=== PATIENT | female | born 1935 | race Caucasian/White ===

== ENCOUNTER 2019-01-28 19:02 | Inpatient (IN) ==
[2019-01-28] MEDS ORDERED: ASPIRIN ONE (19:41)
[2019-01-28] MEDS ORDERED: ASPIRIN PO ONE (19:42)
[2019-01-28 19:50] LABS: BASO# 0.05 X1000 (0.0-0.2); BASO% 0.5 % (0.0-0.8); EOS# 0.21 X1000 (0.0-0.7); HEMOGLOBIN 10.6 g/dL (12.0-16.0); IMM GRAN# 0.02 X1000 (0.0-0.04); IMM GRAN% 0.2 % (0.0-0.5); LYMPH# 2.45 X1000 (1.2-3.4); LYMPH% 23.7 % (20.5-51.1); MCH 28.6 PG (27-31); MCHC 32.1 g/dL (33-37); MCV 89.2 FL (81-99); MONO# 0.82 X1000 (0.11-0.59); MONO% 7.9 % (1.7-9.3); MPV 11.1 FL (7.4-10.4); NEUT# 6.79 X1000 (1.4-6.5); NEUT% 65.7 % (42.2-75.2); PLT 261 X1000 (130-400); RDW 12.8 % (11.5-14.5); WBC 10.34 X1000 (4.8-10.8)
--- NOTE | 2019-01-28 19:57 | Diag Imaging Result Doc PS360 ---
EXAM: CHEST-1 VIEW HISTORY: CP TECHNIQUE: Chest single view COMPARISON: None. FINDINGS: The lungs are well expanded. The heart is not enlarged. The vessels are not distended. There are no infiltrates. No effusion identified. IMPRESSION: Negative exam. Electronically signed by Jesu Sue 01/28/2019 7:54 PM
[2019-01-28 20:16] LABS: AGAP 12; ALB/GLOB RATIO 1.6; ALBUMIN 3.6 g/dL (3.5-5.0); ALKALINE PHOSPHATASE 60 U/L (32-104); BUN 17 mg/dL (8-22); CALCIUM 7.7 mg/dL (8.8-10.2); CHLORIDE 105 mmol/L (98-107); CK PROFILE 44 U/L (24-173); COSMO 292; CREATININE 0.7 mg/dL (0.5-0.9); ESTIMATED GFR > 60; GLUCOSE 290 mg/dL (70-104); GOT 11 U/L (10-30); GPT 8 U/L (10-36); MAGNESIUM 1.3 mg/dL (1.5-2.7); POTASSIUM 3.5 mmol/L (3.5-5.1); SODIUM 140 mmol/L (136-145); TCO2 23 mmol/L (25-35); TOTAL BILIRUBIN < 0.15 mg/dL (0.20-1.00); TOTAL PROTEIN 5.8 g/dL (6.3-8.3)
--- NOTE | 2019-01-28 20:20 | PROVIDER DOCUMENTATION ---
This chart was entered by Dilcia Matthew Scribe, acting as scribe for Sarai Chris MD. HPI-Chest Pain - General Chief Complaint: Chest Pain Stated Complaint: CHEST PAIN Time Seen by Provider: 01/28/19 19:21 Source: patient Allergies/Adverse Reactions: Patient Allergies Allergy/AdvReac Type Severity Reaction Status Date / Time No Known Allergies Allergy Verified 01/28/19 20:33 Home Medications: Home Medication List Medication Instructions Recorded Confirmed Last Taken Type Celecoxib [Celebrex] 1 cap PO DAILY 01/28/19 01/28/19 Unknown History LISINOpril [Prinivil] 1 tab PO DAILY 01/28/19 01/28/19 Unknown History Magnesium Oxide [Magox 400] 1 tab PO DAILY 01/28/19 01/28/19 Unknown History Metformin [Glucophage] 1 tab PO DAILY 01/28/19 01/28/19 Unknown History Mirabegron [Myrbetriq] 1 tab PO DAILY 01/28/19 01/28/19 Unknown History Paroxetine [Paxil] 1 tab PO TID 01/28/19 01/28/19 Unknown History Pioglitazone [Actos] 1 tab PO DAILY 01/28/19 01/28/19 Unknown History - History of Present Illness-CP Nature of Presenting Problem: Pt is 83/F presenting to ED w/ substernal CP that started this morning. She sts that she woke up with it. pt describes the pain as heavy pressure. Denies taking any aspirin or nitro. Pt has no cardiac hx. Pt sts that she has had a dry cough recently as well as some sinus drain. Pt has hx of HTN. Location: reports: substernal Chest Pain Radiation: reports: no radiation Quality of Pain: reports: pressure Severity in ED: moderate Onset/Duration: this morning Timing: still present Context/Activities at Onset: reports: none Modifying Factors: improves with: nothing Associated Symptoms: denies: diaphoresis, heartburn, nausea, shortness of breath Nitro Today/Relief: no nitro taken today Aspirin Treatment Today: no aspirin today Prior Chest Pain/Cardiac Workup: reports: no prior chest pain Similar Symptoms Previously?: No Recently Seen Here or By Another Healthcare Provider: No Review of Systems - Adult - REVIEW OF SYSTEMS - ADULT Constitutional: reports: no symptoms reported. denies: chills, fever Eyes: reports: no symptoms reported Ears, Nose, Mouth & Throat: reports: no symptoms reported Cardiovascular: reports: chest pain Respiratory: reports: cough. denies: shortness of breath Gastrointestinal: denies: nausea, vomiting Genitourinary: reports: no symptoms reported Musculoskeletal: reports: no symptoms reported Integumentary: reports: no symptoms reported Neurological: reports: no symptoms reported. denies: dizziness/vertigo, headache/migraines Psychiatric: reports: no symptoms reported Endocrine: reports: no symptoms reported Hematologic/Lymphatic: reports: no symptoms reported Allergic/Immunologic: reports: no symptoms reported All Other Systems: Reviewed and Negative Past History - Adult - PAST MEDICAL HISTORY-ADULT Review of Records: reports: Old Records Reviewed, Nursing Assessment Review, Medications Reviewed, Social history reviewed & non-contributory. Cardiovascular: reports: HTN - SOCIAL HISTORY Smoking: denies, non-smoker Substance Use: none/never Alcohol Use Frequency: never Living Situation: family Physical Exam-General - PHYSICAL EXAM-ADULT Initial Vital Signs Reviewed: Yes - CONSTITUTIONAL General Appearance: appears well, alert, no apparent distress - EYES Eyes: PERRL/EOMI, pink conjunctivae - HEAD, EARS, NOSE, MOUTH & THROAT HENMT: normocephalic/atraumatic, moist mucous membranes, normal ENT inspection, TMs normal - NECK Neck: non-tender, full range of motion, supple, normal inspection - RESPIRATORY Respiratory: lungs clear - CARDIOVASCULAR Cardiovascular: regular rate, rhythm, other (reproducable chest pain) - GASTROINTESTINAL (ABDOMEN) Abdominal Exam: non tender, soft - LYMPHATIC Lymphatic: no adenopathy - MUSCULOSKELETAL Back Exam: normal inspection Extremity: normal range of motion, non-tender, normal gait, normal inspection - SKIN Integumentary: normal color, warm/dry - NEUROLOGIC Neurologic: grossly normal - PSYCHIATRIC Psych/Mental Status: normal mood/affect, normal thought content, normal thought process, oriented x 3 - HEART Score HEART Score: History: Moderately Suspicious HEART Score: ECG: Non-Specific Repolarization Disturbance/LBBB/PM HEART Score: Age: > or = 65 Years HEART Score: Risk Factors for Atherosclerotic Disease: 1 or 2 Risk Factors HEART Score: Troponin: < or = Normal Limit Total HEART Score:: 5 Progress - PLAN OF CARE/RESULTS Progress/Plan/Lab Results: Orders Category Date Time Status Admit - [facility] Routine AdmDCTranf 01/28/19 22:06 Active Admit To Inpatient From Observation Routine AdmDCTranf 01/30/19 09:38 Active Apply Mechanical Device [QM] ORDERED Care 01/28/19 22:06 Active Notify MD if DIRECTED Care 01/28/19 22:06 Active Nursing- MD Consult Request ROUTINE Care 01/28/19 22:06 Completed Saline Loc DIRECTED Care 01/28/19 22:06 Active Vital Signs Order Q 4-HR ASSESS Care 01/28/19 22:06 Active Z-Document. for Tele Applied ORDERED Care 01/28/19 22:06 Completed MD [Physician/Provider Consults] Routine Cons 01/28/19 22:06 Ordered Heart Healthy Diet Diet 01/29/19 10:24 Completed NPO Diet 01/30/19 00:01 Completed CHEST-1 VIEW [RAD] Stat Exams 01/28/19 19:23 Completed MYOCARDIAL PERF SCAN, STR/REST [NM] Routine Exams 01/30/19 07:19 Draft A1C HGB W EST AVG GLUCOSE [CHEM] Stat Lab 01/29/19 05:26 Completed BASIC METABOLIC PANEL [CHEM] Urgent Lab 01/29/19 09:58 Completed CBC WITH ELECTRONIC DIFF [HEME] Routine Lab 01/29/19 05:26 Completed CBC WITH ELECTRONIC DIFF [HEME] Stat Lab 01/28/19 19:32 Completed CK PROFILE [SP CHEM] Q8H Lab 01/28/19 22:35 Completed CK PROFILE [SP CHEM] Q8H Lab 01/29/19 05:26 Completed CK PROFILE [SP CHEM] Q8H Lab 01/29/19 14:05 Completed CK PROFILE [SP CHEM] Stat Lab 01/28/19 19:32 Completed COMPREHENSIVE METABOLIC PANEL [CHEM] Stat Lab 01/28/19 19:32 Completed LIPID PROFILE W/CALC LDL [LIPIDS] Routine Lab 01/29/19 05:26 Completed MAGNESIUM [CHEM] Stat Lab 01/28/19 19:32 Completed MAGNESIUM [CHEM] Urgent Lab 01/29/19 09:58 Completed TROPONIN T Q8H Lab 01/28/19 22:35 Completed TROPONIN T Q8H Lab 01/29/19 05:26 Completed TROPONIN T Q8H Lab 01/29/19 14:05 Completed TROPONIN T Stat Lab 01/28/19 19:32 Completed Acetaminophen [Tylenol] Med 01/28/19 22:06 Discontinued 650 mg PO Q6H PRN PRN Aspirin Med 01/28/19 19:41 Discontinued 325 mg .ROUTE .STK-MED ONE Aspirin Med 01/29/19 09:00 Discontinued 325 mg PO DAILY Aspirin Med 01/28/19 19:42 Discontinued 325 mg PO NOW ONE Aspirin Med 01/30/19 09:00 Discontinued 81 mg PO DAILY LISINOpril [Prinivil] Med 01/29/19 10:30 Discontinued 5 mg PO DAILY Magnesium Oxide [Mag-Ox] Med 01/30/19 09:00 Discontinued 400 mg PO DAILY Magnesium Oxide [Mag-Ox] Med 01/30/19 09:00 Discontinued 400 mg PO DAILY Magnesium Sulfate 1 gm/D5w Med 01/28/19 20:21 Discontinued 1 gm in 100 ml IV NOW Magnesium Sulfate 2 gm/S.w.i. Med 01/29/19 11:28 Discontinued 2 gm in 50 ml IV NOW Nitroglycerin Sl [Nitroglycerin] Med 01/28/19 22:06 Discontinued 0.4 mg SL Q5M PRN PRN Omeprazole [Prilosec] Med 01/29/19 07:00 Discontinued 20 mg PO DAILY@0700 Ondansetron [Zofran] Med 01/28/19 22:06 Discontinued 4 mg IV Q4H PRN PRN Paroxetine [Paxil] Med 01/29/19 13:00 Discontinued 20 mg PO TID Regadenoson [Lexiscan] Med 01/30/19 09:34 Discontinued 0.4 mg .ROUTE .STK-MED ONE Oxygen Device Routine Oth 01/28/19 22:06 Completed Telemetry [OM.EQ] Routine Oth 01/28/19 22:06 Active EKG [EKG] Routine Ther 01/30/19 06:00 Draft EKG [EKG] Stat Ther 01/28/19 19:10 Draft EKG [EKG] Stat Ther 01/29/19 09:30 Completed Echo Spec/Color Doppler Routine Ther 01/29/19 09:29 Draft Transfer/Admit Order [TRANSFER] Routine Transfer 01/28/19 20:55 Completed Result Diagrams: 01/29/19 05:26 01/29/19 09:58 - EKG 1 Time of EKG reading by physician:: 19:14 EKG Read and Signed by:: Sarai Chris EKG Interpretation (*Must complete 3 of following elements*): Abnormal (normal sinus rhythm, inferior infarct, age undetermined. Abnormal ECG) - XRAY 1 XRAY: Bilateral XRAY Study: Chest Impression: Normal (EXAM: CHEST-1 VIEW HISTORY: CP TECHNIQUE: Chest single view COMPARISON: None. FINDINGS: The lungs are well expanded. The heart is not enlarged. The vessels are not distended. There are no infiltrates. No eff usion identified. IMPRESSION: Negative exam. Electronically signed by Jesu Sue 01/28/2019 7:54 PM 01/28/191953 Interpreting Physician: Jeus Sue MD Dictated Date/Time: 01/28/191953 cc: Sarai Chris MD; Raji Araujo MD) - CONSULTS/PCP/HOSPITALIST Notification #1 *Consult/PCP/Hospitalist*: DR PARADA Time Discussed: 20:36 Consult Disposition: Admit Departure - Departure Date of Disposition Decision: 01/28/19 Time of Disposition Decision: 22:10 DIAGNOSIS: Chest pain Disposition: ADMITTED INPATIENT 09 Certified Medical Emergency: Emergent Condition: Good - Critical Care Note This patient required my direct & personal management of CC.: No Attestation - Physician/ MANUEL Attestation Patient care was provided by Advanced Practice Provider:: No The physician spent face to face time with patient:: Yes Advanced Practice Provider documentation review:: Supervising physician onsite and consulted in the evaluation and care of this patient. The physician did have a face to face encounter with the patient. This chart was documented by the indicated scribe, (Dilcia Matthew Scribe) and accurately reflects the services I performed and decisions made by me, Sarai Chris MD, as attested by the provider's signature.
[2019-01-28] MEDS ORDERED: MAGNESIUM SULFATE 1 GM/D5W 1 GM/100 ML IVPB IV ONE (20:21)
[2019-01-28] MEDS ORDERED: NITROGLYCERIN SL PRN (22:06)
[2019-01-28] MEDS ORDERED: ZOFRAN IV PRN (22:06)
--- NOTE | 2019-01-28 22:15 | HISTORY AND PHYSICAL ---
PRIMARY CARE PHYSICIAN: Dr. Raji Araujo. CHIEF COMPLAINT: Chest pain. HISTORY OF PRESENTING ILLNESS: An 83-year-old female with a history of diabetes mellitus type 2, hypertension, who presented to the emergency department with 1-day history of having chest pain. She described the chest pain as pressure-like and it was intermittent and was not subsiding and subsequently she had come to emergency department. ED she was evaluated and due to presenting symptoms, it was thought that we will place her for observation for further evaluation, management. At time my examination she denied any headache, fever, chills, nausea, vomiting, diarrhea, hemoptysis, melena, weight changes, but complained of chest pain. PAST MEDICAL HISTORY: Include diabetes mellitus type 2, hypertension. PAST SURGICAL HISTORY: Left knee surgery, hysterectomy. ALLERGIES: No known drug allergies. CURRENT MEDICATIONS: She does not recall and nursing staff will reconcile. SOCIAL HISTORY: No history of smoking, alcohol or illicit drug use. FAMILY HISTORY: Positive coronary disease in father. REVIEW OF SYSTEMS: Fourteen point review of system as listed in HPI. Other systems negative. PHYSICAL EXAMINATION: GENERAL: Cooperative, friendly female. She is resting comfortably now. VITAL SIGNS: Temperature 97.5 degrees, pulse 103, respiration 16, blood pressure 176/81. HEENT: Atraumatic, normocephalic. Extraocular movement intact. PERRLA. NECK: Supple. CHEST: Clear to auscultation. CARDIOVASCULAR: Regular rate and rhythm. ABDOMEN: Soft, positive bowel sounds. EXTREMITIES: No edema. NEURO: She is awake, alert, oriented x3. : No bladder disease. LABORATORIES AND STUDIES: WBCs 10.34, hemoglobin 10.6, hematocrit 33.0, platelets 261,000. Sodium 140, potassium 3.5, chloride 105, CO2 is 23, BUN is 17, creatinine 0.7, glucose is 90. Chest x-ray is negative. ASSESSMENT: An 83-year-old female with a history of diabetes mellitus type 2, hypertension who presented to emergency department with 1-day history of having chest pain. We will place the patient for observation further evaluation and management. 1. Chest pain. 2. Diabetes mellitus type 2. 3. Hypertension. PLAN: 1. We will admit patient to medical floor with telemetry. 2. Continue cardiac workup. Check EKG, serial cardiac enzymes. Have patient continue on aspirin. We will use sublingual nitroglycerin p.r.n. chest pain. 3. Consult Cardiology. 4. Monitor blood glucose and put patient on sliding scale insulin regimen. 5. Monitor blood pressure. Resume antihypertensive agent. 6. Put patient on DVT prophylaxis SCD. 7. We will continue to follow and reassess. Make further recommendation based on the patient's clinical course. cc: Mikhail Hutson MD
--- NOTE | 2019-01-29 01:22 | EKG Report ---
Test Performed on : 01/28/2019 7:14:24 PM Test Reason : cp Blood Pressure : / mmHG Vent. Rate : 096 BPM Atrial Rate : 096 BPM P-R Int : 176 ms QRS Dur : 072 ms QT Int : 360 ms P-R-T Axes : 112 -08 017 degrees QTc Int : 454 ms Normal sinus rhythm. Inferior infarct , age undetermined Abnormal ECG No previous ECGs available Unconfirmed Result
[2019-01-29 05:44] LABS: BASO# 0.07 X1000 (0.0-0.2); BASO% 0.8 % (0.0-0.8); EOS# 0.31 X1000 (0.0-0.7); EOS% 3.6 % (0.0-10.0); HEMATOCRIT 36.1 % (37.0-47.0); HEMOGLOBIN 11.6 g/dL (12.0-16.0); LYMPH# 2.23 X1000 (1.2-3.4); LYMPH% 25.6 % (20.5-51.1); MCH 29.1 PG (27-31); MCHC 32.1 g/dL (33-37); MCV 90.7 FL (81-99); MONO% 10.3 % (1.7-9.3); MPV 10.8 FL (7.4-10.4); NEUT# 5.21 X1000 (1.4-6.5); NEUT% 59.7 % (42.2-75.2); PLT 264 X1000 (130-400); RBC 3.98 XMIL (4.2-5.4); RDW 13.1 % (11.5-14.5); WBC 8.72 X1000 (4.8-10.8)
[2019-01-29] MEDS: PRILOSEC PO SCH (06:13)
[2019-01-29 06:38] LABS: CHOLESTEROL 192 mg/dL (0-200); HDL 35 mg/dL (45-65); LDL 131 mg/dL; TRIGLYCERIDES 132 mg/dL (35-135); VLDL 26 mg/dL
[2019-01-29] MEDS ORDERED: ASPIRIN PO SCH (09:00)
[2019-01-29 10:40] LABS: AGAP 10; BUN 14 mg/dL (8-22); CALCIUM 9.3 mg/dL (8.8-10.2); CHLORIDE 103 mmol/L (98-107); COSMO 287; CREATININE 0.7 mg/dL (0.5-0.9); ESTIMATED GFR > 60; GLUCOSE 224 mg/dL (70-104); MAGNESIUM 1.6 mg/dL (1.5-2.7); SODIUM 140 mmol/L (136-145); TCO2 27 mmol/L (25-35)
--- NOTE | 2019-01-29 10:40 | EKG Report ---
Test Performed on : 01/29/2019 09:42:23 AM Test Reason : chest pain Blood Pressure : / mmHG Vent. Rate : 082 BPM Atrial Rate : 082 BPM P-R Int : 164 ms QRS Dur : 072 ms QT Int : 382 ms P-R-T Axes : -04 000 025 degrees QTc Int : 446 ms Normal sinus rhythm. Possible Inferior infarct (cited on or before 28-JAN-2019) Abnormal ECG When compared with ECG of 28-JAN-2019 19:14, (Unconfirmed) Questionable change in initial forces of Inferior leads Confirmed by Lorena Cota MD ([id number]) on 01/29/2019 4:11:39 PM
[2019-01-29] MEDS ORDERED: MAGNESIUM SULFATE 2 GM/S.W.I. 2 GM/50 ML IVPB IV ONE (11:28)
[2019-01-29] MEDS: PRINIVIL PO SCH (12:23)
[2019-01-29 13:16] LABS: HEMOGLOBIN A1C 7.4 % (4.8-6.0)
--- NOTE | 2019-01-29 14:36 | ECHO REPORT ---
ORDER DATE: 01/29/2019 ECHOCARDIOGRAPHIC MEASUREMENTS: 1. Interventricular septum 1.6 . 2. Left ventricular posterior wall 1.1. 3. Diastolic diameter 3.7. 4. Left atrium 3.7. 5. Aorta 3.4. SUMMARY: 1. Aortic valve leaflets are sclerosed, trileaflet opening normally. 2. Pulmonic valve was normal. 3. Tricuspid valve was normal. 4. Mitral valve, anterior mitral valve was normal. There was moderate to severe mitral annular calcification involving the base of the posterior mitral leaflet. 5. There is left atrial enlargement. 6. Peak velocity across the aortic valve less than 2 m/sec. 7. There is no aortic stenosis. 8. There is aortic sclerosis. 9. There is no aortic regurgitation. 10. Normal left ventricular cavity size. Concentric left ventricular hypertrophy. Estimated ejection fraction of 70%. 11. There is diastolic dysfunction. 12. There is mild mitral regurgitation. 13. Mild tricuspid regurgitation. 14. Peak velocity across the tricuspid valve was 2.2 m/sec. 15. Pulmonary artery systolic pressure of 28 mmHg. 16. There is no pericardial effusion or obvious intracardiac mass or thrombus seen. cc: MD Kirsten Mclain PA
--- NOTE | 2019-01-29 14:39 | CARDIOLOGY CONSULTATION ---
DATE: 01/29/2019 CHIEF COMPLAINT: Chest pain. PRIMARY CARE PHYSICIAN: The primary service is hospitalist and Dr. Rjai Araujo. HISTORY: Ms. Arevalo is a pleasant 83-year-old female who presented to the emergency room yesterday after experiencing an episode of discomfort in the chest and pressure that started somewhere in the afternoon. The patient said that she cooked dinner at home and made the smoke detectors go off and the police and the fire department showed up at her house. That was kind of unusual for her. Then she went to visit a cousin and they chatted for a while. Apparently, they had a loss in the family recently. By the time she got back to her house, she started having the discomfort in the chest that gradually got worse and then she called her cousin, Austin Ross, who is the head of the CT program in [place] and he drove her to the emergency room. Upon presentation, they did an EKG that showed no acute changes. They checked troponin levels and they have done 3 of them. They are negative. They put the patient on observation and she has not had any further discomfort. The pain was substernal. It was not radiated. There was no associated nausea or diaphoresis. She reports fatigue. She is not very active in general. PAST MEDICAL HISTORY: Positive for hypertension, diabetes mellitus type 2. She has had a right posterior fossa meningioma. SURGICAL HISTORY: She had a total left knee replacement, hysterectomy. SOCIAL HISTORY: She has been a for the past 14 years or so. She has only 1 daughter who is present in the room. 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 She retired in . She is not a smoker nor drinker. was a smoker. FAMILY HISTORY: Father had heart disease, bypass. ALLERGIES: Negative. HOME MEDICATIONS: Celebrex daily, lisinopril 5 daily, magnesium oxide, metformin, Myrbetriq, Paxil, and Actos. REVIEW OF SYSTEMS: Basically over the course of the past few years, her memory has deteriorated. Her daughter states that she has been diagnosed with dementia. She has also developed difficulty getting around because of multiple osteoarthritis. No other major positives. She has never had any heart issues. PHYSICAL EXAMINATION: Vital signs: Blood pressure 146/71, pulse 80, respirations 18, temperature 98.1 degrees. General: She is awake, alert, no distress. HEENT: Unremarkable. She is hard of hearing. Chest: Sounds clear to auscultation and percussion. She has extensive seborrheic dermatitis lesions on the back. Heart: The heart sounds are regular rhythmic. No gallop or murmur. Abdomen: Soft, nontender. No masses. No hepatomegaly. Extremities: Showed decreased pulses. No peripheral edema. No varicose veins. Neurologic: alert,oriented,pleasant. follows commands. moves 4 extremities. LABORATORY DATA: CPKs are 3 times negative, troponins are 3 times negative. Magnesium was low. We are rechecking it. BUN is 17, creatinine 0.7, sodium 140, potassium 3.5, hemoglobin 11.6. Chest x-ray showed no infiltrates, no acute changes. EKG as I said is negative. The repeat EKG at 9:42 this morning shows sinus rhythm, no acute changes. It is pretty unremarkable. IMPRESSION: 1. Patient presenting with chest pain which is somewhat atypical. 2. Hypomagnesemia with hypokalemia. 3. Hypertension. 4. Diabetes mellitus type 2. 5. Multiple osteoarthritis. 6. Dementia? RECOMMENDATION: At this time, we will arrange for a 2D echocardiogram and stress test. We will replace magnesium as needed and we will take it from there. The daughter asked me to consider sending her to [place] should an invasive procedure be deemed necessary. cc: Tim Wolf MD [facility]
[2019-01-29] MEDS: PAXIL PO SCH ×2 (15:59→18:36)
--- NOTE | 2019-01-29 16:30 | PROGRESS NOTE ---
DATE: 01/29/2019 INTERVAL HISTORY: Ms. Arevalo was admitted for pressure-like intermittent chest pain with occasional shortness of breath of 1 day duration. She does have past medical history of essential hypertension, hypertension, diabetes mellitus type 2, and anxiety. She is currently undergoing resting myocardial images as well as stress imaging tomorrow. She currently denies any chest pain. She denies any known history of coronary artery disease. OBJECTIVE: Vital Signs: Temperature 97.9 degrees, pulse 77, respiratory rate 18, blood pressure 150/70, saturating 97% on room air. General: Does not appear in any acute distress. HEENT: Oral cavity is moist. Lungs: Air entry bilaterally equal. No wheeze or crackles. Cardiovascular: S1 and S2 normal. No murmur or gallop. Abdomen: Soft, nontender. Extremities: No lower extremity edema. Neurologic: She is alert. She is oriented to place and person and partially with the situation. She does have hearing impairment. LABORATORY DATA: Suggestive of normocytic anemia, normal platelet count. Normal electrolytes. Hyperglycemia. Hemoglobin A1c is elevated. Hypomagnesemia is currently repleted. Troponins are negative x4. Lipid panel suggests LDL of 130 and HDL of 35. Microbiology: No data. IMAGING: Chest x-ray did not have any acute pathology. Echocardiogram had ejection fraction of 70% with concentric left ventricular hypertrophy with diastolic dysfunction, mild mitral regurgitation. Electrocardiogram performed had normal sinus rhythm and inferior infarct with age indetermination. Cardiology had recommended echocardiogram and stress imaging. ASSESSMENT AND PLAN: 1. Atypical chest pain. I will continue patient on nitroglycerin as needed, daily aspirin and omeprazole for chronic gastroesophageal reflux disease. Her troponins are negative. EKG did not have acute coronary syndrome-related changes. Follow up with a stress test. Echocardiogram did not have any regional wall motion abnormalities. 2. Essential hypertension and hypomagnesemia. Continue magnesium supplement, oral lisinopril. 3. Anxiety. Continue home paroxetine. 4. Disposition. The patient remains inside the hospital as we await stress imaging. Plan of care discussed with her and her questions have been satisfactorily answered. cc: Vimal Castillo MD
[2019-01-29] MEDS: TYLENOL PO PRN (20:18)
[2019-01-30] MEDS: PRILOSEC PO SCH (05:59)
--- NOTE | 2019-01-30 07:44 | EKG Report ---
Test Performed on : 01/30/2019 07:12:46 AM Test Reason : chest pain Blood Pressure : / mmHG Vent. Rate : 076 BPM Atrial Rate : 076 BPM P-R Int : 168 ms QRS Dur : 072 ms QT Int : 394 ms P-R-T Axes : 013 013 043 degrees QTc Int : 443 ms Normal sinus rhythm. Normal ECG When compared with ECG of 29-JAN-2019 09:42, Borderline criteria for Inferior infarct are no longer present Confirmed by Lorena Cota MD ([id number]) on 02/04/2019 9:27:38 PM
[2019-01-30] MEDS ORDERED: MAG-OX PO SCH ×2 (09:00)
[2019-01-30] MEDS ORDERED: ASPIRIN PO SCH (09:00)
[2019-01-30] MEDS ORDERED: LEXISCAN ONE (09:34)
[2019-01-30] MEDS: PRINIVIL PO SCH (11:28)
[2019-01-30] MEDS: PAXIL PO SCH ×2 (11:28→15:56)
--- NOTE | 2019-01-30 15:44 | Diag Imaging Result Document ---
PROCEDURE NAME: MYOCARDIAL PERF SCAN, STR/REST - 01/30/2019 INDICATION: This is an 83-year-old female with chest pain. DESCRIPTION OF PROCEDURE: The patient came into the nuclear lab and received a rest injection of technetium 99 sestamibi 12.1 mCi. Multiple tomographic views of the heart were obtained at rest. Subsequently the patient underwent a Lexiscan infusion 0.4 mg. At peak infusion was injected with technetium 99 sestamibi 35.7 mCi. Multiple tomographic views of the cardiac structures were obtained following completion of the protocol. SUMMARY OF ELECTROCARDIOGRAPHIC PORTION OF THE STUDY: Resting ECG shows sinus rhythm. No significant resting abnormalities are noted. During the infusion, the heart rate increased to 113 beats per minute. Blood pressure dropped to 105/49. The patient reported nausea sickness. This resolved spontaneously. The ECG showed sinus tachycardia without any ischemic changes. Following the completion of the test, heart rate and blood pressure returned back to baseline. CONCLUSIONS: In summary, electrocardiographic response to infusion of Lexiscan is unremarkable. SUMMARY OF MYOCARDIAL PERFUSION PORTION OF THE STUDY: Poststress tomographic views of the left ventricle showed a small to medium size basal to mid inferior--inferolateral wall defect. The rest images suggest that this defect is mostly fixed. The polar plots revealed the same. This is a fixed basal to mid inferior--inferolateral defect of mild to moderate severity. The possibility of attenuation artifact is strongly likely given large breast tissue shadowing the inferolateral wall of the heart. In addition, there is a significant amount of GI uptake of radiotracer in the rest images. This study is really somewhat equivocal for the inferior wall. The anterior septal and lateral wall perfusion is normal. The gated SPECT shows resting ejection fraction of 83%. Post stress 86%. The ventricular chamber is small. Lung/heart ratio is normal. TID is normal. CONCLUSIONS: In summary, this study showed: 1. Unremarkable electrocardiographic response to infusion of Lexiscan. 2. Probably normal poststress myocardial perfusion scan. There is no convincing scintigraphic evidence of pharmacologically induced myocardial ischemia. The basal to mid inferior wall defect of mild to moderate extent and severity likely represents attenuation artifact from soft tissue. 3. Normal left ventricular systolic function. Ejection fraction is 86% with normal ventricular volumes and no wall motion abnormality. 4. This study represents a low risk for ischemic events. Clinical correlation is recommended. cc: Tim Wolf MD
[2019-01-30] MEDS: TYLENOL PO PRN (15:56)
--- NOTE | 2019-01-30 17:22 | CARDIOLOGY PROGRESS NOTE ---
DATE: 01/30/2019 CHIEF COMPLAINT: Chest pain. SUBJECTIVE: Ms. Arevalo is feeling better. She has no complaints OBJECTIVE: Vital Signs: Blood pressure 139/48, temperature 98.7, respirations 18, pulse 80. General: She is awake and alert, in no distress. HEENT: Unremarkable. Chest: Clear to auscultation and percussion. Cardiovascular: Regular rate and rhythm. No gallop or murmur. Extremities: No edema. Neurologic: Hard of hearing, forgetful. Otherwise nonfocal. BLOOD WORK: Cholesterol 192, LDL 131, HDL 35, triglycerides 132. DIAGNOSTIC DATA: Today the patient underwent a stress test that was negative for ischemia. Her echocardiogram from yesterday showed a normal ejection fraction with mitral annulus calcification and mild mitral and tricuspid regurgitation. Pulmonary pressure was basically normal. A 12-lead ECG this morning was normal. IMPRESSION: 1. Patient who presented with chest pain. 2. Dementia. 3. Deafness/hard of hearing. 4. Diabetes mellitus type 2. 5. Multiple osteoarthritis. 6. History of hypertension. RECOMMENDATIONS: At this time the patient may be discharged home with instructions to follow up with Dr. Araujo. Cardiac trevizo, there is no further testing to be done. Her stress test, in my opinion, is really quite benign. The likelihood of cardiac events is low. Please feel free to call us if you have any questions or concerns. cc: Tim Wolf MD
[2019-01-30 19:32] VITALS: BP 154/67
--- NOTE | 2019-01-30 23:41 | DISCHARGE SUMMARY ---
ADMISSION DATE: 01/30/2019 DISCHARGE DATE: 01/30/2019 DISCHARGE DISPOSITION: Home. DISCHARGE CONDITION: Hemodynamically stable. She denies any more chest pain, shortness of breath, or palpitation. DISCHARGE DIAGNOSES: 1. Atypical chest pain. 2. Essential hypertension. 3. Anxiety. 4. Hypomagnesemia, which was repleted. 5. Bly-ixlnoxw-fakjikagy diabetes mellitus type 2. DISCHARGE MEDICATIONS: Pioglitazone 15 mg daily, celecoxib 200 mg daily, metformin 500 mg daily, magnesium oxide 400 mg daily, mirabegron 50 mg daily, paroxetine 20 mg p.o. t.i.d., lisinopril 5 mg daily. CONSULTATION: Dr. Wolf, cardiology. PHYSICAL EXAMINATION: Vital signs at Discharge: Temperature 98.7 degrees, pulse 80, respiratory rate 18, blood pressure 140/48, saturating 95% on room air. PHYSICAL EXAMINATION: General: Does not appear in acute distress. HEENT: Oral cavity is moist. Lungs: Air entry bilaterally equal. No wheeze, rhonchi, or crackles. Cardiovascular: S1, S2 normal. No murmur or gallop. Abdomen: Soft, nontender. Extremity: No lower extremity edema. Neurologic: She is alert, oriented x3. She is denying any chest pain. SIGNIFICANT LABS: During hospital admission and discharge, hemoglobin 11.6, platelet of 264,000. BUN 14, creatinine of 0.7. Hemoglobin A1c 7.4. Troponin's were negative x3. HDL was 35, LDL was 130. Microbiology significant during hospital admission, none. IMAGING: During hospital admission, chest x-ray, did not have any acute cardiopulmonary process. Echocardiogram had suggested estimated ejection fraction of 70%, concentric left ventricular hypertrophy, diastolic dysfunction without any regional wall motion abnormalities. There was left atrial enlargement. Myocardial perfusion scan nuclear medicine was unremarkable electrocardiographic response to infusion of Lexiscan, probably normal post-stress myocardial perfusion scan without any convincing scintigraphic evidence of pharmacologically induced myocardial ischemia. Basal to mid inferior wall defect, mild to moderate extent in severity, likely represent attenuation artifact from soft tissue. There was normal left ventricular systolic function with ejection fraction of 36% with normal ventricular volumes without any wall motion abnormality. EKG on admission had normal sinus rhythm and inferior infarct, age undetermined. EKG on the day of discharge had normal sinus rhythm. HOSPITAL COURSE SUMMARY: Ms. Arevalo is an 83-year-old lady with past medical history of noninsulin-dependent diabetes mellitus, who came in with chief complaint of chest pain of about 1 day's duration. The pain was described as pressure-like, intermittent, subsiding within seconds to a few minutes, it did not have any exertional component, and she kept on having this pain, so she decided to come to the emergency room. In the emergency room, she was placed on the observation. EKG and troponin's were negative. Considering her risk factor of age, noninsulin- dependent diabetes mellitus, and hypertension, it was decided to call the Cardiology and have a nuclear medicine stress test next. Nuclear versus stress test did not detect any scintigraphic evidence of cardiac ischemia. It was thought that her chest pain was related to gaseous distention of her abdomen, which she complained of, and chronic GERD or anxiety, and it was decided to have her see her regular doctor as an outpatient. At the time of discharge, detailed discharge instructions were provided to her. All of her questions were answered. cc: Vimal Castillo MD
== END 2019-01-30 20:07 | disposition home or self-care (01) | DRG 392 ==
LOC: ED 19:02 → SUATTDRO 21:51 → 3N 21:51 → INTOOBSV 21:51
PROVIDERS: ATTEND Internal Medicine